=== PATIENT | male | born 1960 | race Caucasian/White ===

== ENCOUNTER 2017-11-03 09:19 | Outpatient (CLI) | payer SELFPAY ==
[2017-11-03 11:10] LABS: Hemoglobin A1C 9.2 % (4.5-6.2)
== END 2017-11-03 09:20 ==
PROVIDERS: PCP Family Medicine; Visit Provider Family Medicine
DX: E11.9 Type 2 diabetes mellitus without complications (principal)
CPT/HCPCS: 36415; 83036

== ENCOUNTER 2018-06-20 09:17 | Outpatient (CLI) | payer SELFPAY ==
[2018-06-20 13:02] LABS: Hemoglobin A1C 8.5 % (4.5-6.2)
[2018-06-20 13:10] LABS: CREATININE 1.07 mg/dL (0.70-1.30); Cholesterol 167 mg/dL (50-200); HDL Cholesterol 37 mg/dL (40-60); LDL CHOLESTEROL 109 mg/dL (<100); Potassium 4.2 mmol/L (3.5-5.1); Triglyceride 141 mg/dL (30-150)
== END 2018-06-20 09:37 ==
PROVIDERS: PCP Family Medicine; Visit Provider Family Medicine
DX: E11.9 Type 2 diabetes mellitus without complications (principal); E78.5 Hyperlipidemia, unspecified
CPT/HCPCS: 36415; 80061; 83721; 82565; 83036; 84132

== ENCOUNTER 2018-09-14 14:46 | Outpatient (CLI) | payer OTHER, SELFPAY ==
[2018-09-14 16:15] LABS: Calculated LDL 78 mg/dL; Cholesterol 185 mg/dL (50-200); HDL Cholesterol 40 mg/dL (40-60); Triglyceride 335 mg/dL (30-150)
== END 2018-09-14 15:06 ==
PROVIDERS: PCP Family Medicine; Visit Provider Family Medicine
DX: E78.5 Hyperlipidemia, unspecified (principal); E11.9 Type 2 diabetes mellitus without complications
CPT/HCPCS: 36415; 80061; 83721

== ENCOUNTER 2019-01-04 10:24 | Outpatient (CLI) | payer OTHER, SELFPAY ==
[2019-01-04 12:41] LABS: Hemoglobin A1C 7.3 % (4.5-6.2)
== END 2019-01-04 10:44 ==
PROVIDERS: PCP Family Medicine; Visit Provider Family Medicine
DX: E11.9 Type 2 diabetes mellitus without complications (principal)
CPT/HCPCS: 36415; 83036

== ENCOUNTER 2019-01-30 11:09 | Outpatient (CLI) | payer OTHER, SELFPAY ==
--- NOTE | 2019-01-30 11:17 | DI.RAD_ITS ---
EXAM: XR KNEE RT 2V AP,LAT CLINICAL HISTORY: pain TECHNIQUE: COMPARISON: No exams were available for comparison FINDINGS: Two views were obtained. There is marked narrowing of the medial tibiofemoral cartilaginous joint sp timothy with slight varus angulation of the knee and slight medial subluxation of the femur on the tibia. There is subchondral sclerosis of the adjacent bones at the medial tibiofemoral joint. Moderate ma rginal osteophyte formation noted at multiple sites. IMPRESSION: Moderate to severe degenerative changes medial tibiofemoral joint
--- NOTE | 2019-01-30 11:18 | DI.RAD_ITS ---
EXAM: XR KNEE LT 2V AP,LAT CLINICAL HISTORY: pain TECHNIQUE: COMPARISON: XR KNEE RT 2V AP,LAT from 01/30/2019 FINDINGS: Two views were obtained. There is marked narrowing of the medial tibiofemoral cartilaginous joint sp timothy. Slight subchondral sclerosis of the adjacent bones noted at this joint. Mild marginal osteophy te formation noted at multiple sites. 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
== END 2019-01-30 11:29 ==
PROVIDERS: PCP Family Medicine; Referring Provider Family Medicine; Visit Provider Orthopaedic Surgery
DX: M25.561 Pain in right knee (principal); M25.562 Pain in left knee; M17.12 Unilateral primary osteoarthritis, left knee
CPT/HCPCS: 20610; 99201; 99213; 73560; J1040

== ENCOUNTER 2019-04-15 01:54 | Outpatient (CLI) | payer OTHER, SELFPAY ==
[2019-04-15 11:34] LABS: CREATININE 1.28 mg/dL (0.70-1.30); Estimated GFR 57.33 (mL/min/1.73m2); Potassium 4.4 mmol/L (3.5-5.1)
[2019-04-15 14:04] LABS: COMMENT (LAB VIEW ONLY) 210.97 mg/dL; Microalb ug/mg Crea 6.9 ug/mg Cr
[2019-04-15 15:21] LABS: Hemoglobin A1C 7.4 % (3.8-5.6)
== END 2019-04-15 02:14 ==
PROVIDERS: PCP Family Medicine; Visit Provider Family Medicine
DX: I10 Essential (primary) hypertension (principal); E11.65 Type 2 diabetes mellitus with hyperglycemia
CPT/HCPCS: 36415; 82043; 82565; 82570; 83036; 84132

== ENCOUNTER → 2019-05-01 08:53 | Outpatient (BNVA) | payer OTHER, SELFPAY | PROVIDERS: PCP Family Medicine; Referring Provider Family Medicine; Visit Provider Orthopaedic Surgery | DX: M25.561 Pain in right knee (principal); M17.0 Bilateral primary osteoarthritis of knee | CPT/HCPCS: 99213 ==

== ENCOUNTER 2019-11-29 02:47 | Outpatient (CLI) | payer OTHER, SELFPAY ==
[2019-11-29 20:05] LABS: COMMENT (LAB VIEW ONLY) 65.13 mg/dL; Microalb ug/mg Crea 9.1 ug/mg Cr
[2019-11-29 22:31] LABS: PSA, Screening 4.1 ng/mL (0.0-4.5)
== END 2019-11-29 03:07 ==
PROVIDERS: PCP Family Medicine; Visit Provider Family Medicine
DX: Z12.5 Encounter for screening for malignant neoplasm of prostate (principal)
CPT/HCPCS: 36415; 84153; 82043; 82570

== ENCOUNTER 2020-03-31 14:13 | Outpatient (CLI) | payer OTHER, SELFPAY ==
--- NOTE | 2020-03-31 14:00 | DI.RAD_ITS ---
EXAM: XR KNEE RT 1V CLINICAL HISTORY: preop. TECHNIQUE: 2D digital imaging was performed. COMPARISON: CR XR KNEE LT 2V AP,LAT from 01/30/2019 CR XR STANDING ALIGNMENT from 03/31/2020 CR XR STANDING ALIGNMENT from 03/31/2020 FINDINGS: There are severe degenerative changes of the medial femoral tibial joint of the right knee. There is some lateral subluxation of the tibia with respect to the femur. There is prominent periarticular s purring as well as ferrous angulation. There is also severe narrowing of the medial femoral tibial j oint of the left knee. There is mild varus angulation. The ankle joint spaces are well maintained. The hip joint spaces are well maintained. There is a mild overall leg length discrepancy with the l eft femoral head projecting 5-7 millimeters superior to the right femoral head. IMPRESSION: Advanced degenerative changes of both knees, right greater than left. Mild overall leg length discre pancy. DATA REPOSITORY: RADIATION DOSE DELIVERED:
== END 2020-03-31 14:33 ==
PROVIDERS: PCP Family Medicine; Referring Provider Family Medicine; Visit Provider Physician Assistant Surgical
DX: M17.0 Bilateral primary osteoarthritis of knee (principal); M21.752 Unequal limb length (acquired), left femur
CPT/HCPCS: 73560; 77073

== ENCOUNTER 2020-04-03 01:15 | Outpatient (CLI) | payer OTHER, SELFPAY ==
[2020-04-03 11:11] LABS: HCT 45.9 % (40.0-50.0); HGB 15.2 g/dL (13.5-17.5); MCH 28.7 pg (27.0-33.0); MCHC 33.1 % (32.0-36.0); MCV 86.8 fL (80-95); MPV 10.7 fL (8.0-11.0); Platelet Count 193 10^3/uL (130-400); RBC 5.29 10^6/uL (4.36-5.78); RDW 12.9 % (11.8-14.1); RDW-SD 41.1 fL; WBC 6.34 10^3/uL (4.4-10.8)
[2020-04-03 11:30] LABS: Hemoglobin A1C 7.3 % (<5.7)
[2020-04-03 11:44] LABS: Anion Gap 10.9 mmol/L (3-11); BUN 28 mg/dL (7-18); CO2 26.1 mmol/L (21.0-32.0); CREATININE 1.3 mg/dL (0.70-1.30); Calcium 9.4 mg/dL (8.5-10.1); Chloride 100 mmol/L (98-107); Estimated GFR 56.12 (mL/min/1.73m2); Glucose 133 mg/dL (74-106); Potassium 4.3 mmol/L (3.5-5.1); Sodium 137 mmol/L (136-145)
[2020-04-04 13:07] LABS: COVID-19 RT-PCR UVMMC Result Negative (Negative)
== END 2020-04-03 01:35 ==
PROVIDERS: Physician Assistant Surgical; PCP Family Medicine; Visit Provider Student in an Organized Health Care Education/Training Program
DX: M25.561 Pain in right knee (principal); M25.562 Pain in left knee; M17.0 Bilateral primary osteoarthritis of knee; E11.9 Type 2 diabetes mellitus without complications; Z11.52 Encounter for screening for COVID-19; Z01.818 Encounter for other preprocedural examination; Z01.812 Encounter for preprocedural laboratory examination
CPT/HCPCS: 36415; 80048; 85027; U0003; 83036

== ENCOUNTER 2020-04-07 06:05 | Day surgery (SDC) | payer OTHER, SELFPAY ==
[2020-04-07] VITALS (9 sets, daily range): BP systolic 118–145; BP diastolic 63–82; PULSE 71–86; RESP 11–19; TEMP 36–36.6; O2SAT 93–97
[2020-04-07] MEDS: Acetaminophen 500 MG TAB 1000 MG PO ×2 (06:45→13:15)
[2020-04-07] MEDS: Celecoxib 200 MG CAP 400 MG PO (06:45)
[2020-04-07] MEDS: Gabapentin 300 MG CAP PO (06:45)
[2020-04-07] MEDS: Lactated Ringers 1,000 ML 80 ML IV (07:10)
--- NOTE | 2020-04-07 07:16 | W.PM.DS.N ---
Documented by User: Ana Lilia Zelalem 04/07/20 07:21 DS: Diagnosis Discharge Diagnosis (1) Osteoarthritis of right knee: Status: Acute Discharge Plan Disposition Patient Disposition: HOME Condition: Good Discharge Details Reason For Visit: Right knee DJD Attending Provider: Joe Dominguez Primary Care Provider: Andres Alvarez Home Meds and New Rx's Prescriptions: New acetaminophen 500 mg tablet 500 mg PO Q6H PRN (Reason: pain) Qty: 60 RF: 2 aspirin 81 mg tablet,delayed release (DR/EC) 81 mg PO BID 30 Days Qty: 60 RF: 0 celecoxib [Celebrex] 200 mg capsule 200 mg PO BID Qty: 30 RF: 0 docusate sodium [Colace] 100 mg capsule 100 mg PO BID Qty: 30 RF: 0 pantoprazole 40 mg tablet,delayed release (DR/EC) 40 mg PO DAILY 30 Days Qty: 30 RF: 0 oxycodone 5 mg tablet 5 mg PO Q4H PRN (Reason: severe post-operative pain) Qty: 18 RF: 0 Continued atorvastatin 20 mg tablet 20 mg PO DAILY Qty: 90 RF: 3 lisinopril-hydrochlorothiazide 20-12.5 mg tablet 2 tab PO DAILY Qty: 180 RF: 3 metformin 1,000 mg tablet 1,000 mg PO BID Qty: 180 RF: 3 (DME) lancets [OneTouch Delica Lancets] 1 EACH misc 1 ea Miscellaneous DAILY Qty: 100 RF: 3 Jardiance 10 mg tablet 10 mg PO DAILY Qty: 90 RF: 3 Discontinued aspirin 81 MG tablet,delayed release (DR/EC) 81 mg PO DAILY RF: 0 ibuprofen 200 mg Capsule 600 mg PO Q8H RF: 0 Discharge Instructions Additional Instructions: Total Knee Discharge Instructions Activity: The most important activity is to walk. You should try to take short walks a few times a day. It is important that when resting you work on keeping the knee straight. Avoid putting a pillow behind the knee as this will encourage flexion. Work on range of motion exercises as provided by Physical Therapy. - Start outpatient physical therapy within 2 weeks. - You should wear the NAKITA hose on both legs for 2 weeks. Dressing: Keep the surgical dressing in place for at least one week. After the first week it may be removed and replace with light gauze and tape or nothing. It may get wet after 3 days but avoid soaking the dressing. If it gets wet, just lightly pat dry. Medications: - You should take Tylenol and anti-inflammatory Celebrex as your primary pain control medications. If the Celebrex is too expensive or not covered, please call the office for another alternative (Advil/Ibuprofen or Naproxen/Aleve) - You have been prescribed a stronger pain medication Oxycodone for breakthrough pain, take as needed as prescribed. - You have also been prescribed a stomach acid reduction agent Pantoprozole to help reduce stomach acid and reflux. - Instead of your normal Aspirin 81 mg daily that you take we will be increasing your dose to Aspirin 81mg twice a day for DVT prevention unless instructed otherwise. A prescription for this Aspirin dosing was also prescribed. - If you have constipation you should take Colace (which was prescribed for you) or Miralax (which you may purchase [id number]). It takes most people 3-4 days to have a bowel movement. Follow-up: 2 weeks If you have any acute concerns or questions, please do not hesitate to contact the office at [phone]. You may contact Dr. Dominguez with any questions after hours through the hospital at [phone] or on his cell phone at [phone]. Referrals: Joe Dominguez MD [ [facility] STAFF PHYSICIAN] - Equipment/Supplies: Walker Activity:: Elevate Remove Dressings/Wound Care:: Do Not Remove Shower/Bathe:: 72 hours Diet:: As Tolerated Discharge Orders Discharge Orders: Discharge Order (Routine); Ordered 04/07/20 Ordered By: Joe Dominguez DS: Data Vitals/I&O Vitals and I&O: Vital Signs Temperature 36.5 C 04/07/20 06:10 Pulse 85 04/07/20 06:10 Pulse Rhythm Regular 04/07/20 06:10 Respiratory Rate 18 04/07/20 06:10 Respiratory Depth Normal 04/07/20 06:10 Blood Pressure 145/82 H 04/07/20 06:10 Pulse Oximetry 94 04/07/20 06:10 Oxygen Delivery Method Room Air 04/07/20 06:10 Oxygen Flow Rate 0 04/07/20 06:10 Pain Level 3 04/07/20 06:10 Intake & Output 04/06/20 04/06/20 04/07/20 11:59 23:59 11:59 Weight 107.048 kg 107.2 kg [facility] Medical History Bilateral chronic knee pain MICHELL (obstructive sleep apnea) Surgical History (Updated 04/07/20 @ 06:20 by Evy Sandoval RN) Appendectomy (~1978) History of colonoscopy left thumb ligament reattached (04/22/98) right knee surgery (04/22/81) Family History Mother , 50 Breast cancer Father Diabetes Heart disease Maternal Grandfather , 62 Kidney malignant neoplasm Paternal Grandfather , approx 75 No problems noted. Maternal Grandmother , 86 Heart disease Hypertension Paternal Grandfather , 51 Colon cancer Son Alcohol abuse Substance abuse Social History Smoking/Tobacco Use Status: Former Tobacco Use Quit Date: 03/23/20 Smokeless tobacco user: chewing tobacco Quit status: has quit before Second Hand Exposure: Yes Smoking risk assessment performed?: Yes Alcohol Intake: current Alcohol Intake frequency: a few times a month Alcohol type: beer Drug use: Never Substance use type: does not use Details: Pt states smoking briefly in 80's, has chewed tobacco for many years, quiting 03/23/20. Caregiver/Support person: No Household members: spouse Housing: house Communication Needs: None Do you need help understanding health information?: Rarely Pets and animals: Yes Pets and animals: cat(s) and dog(s) Sexually active: Yes Do you think of yourself as: straight/heterosexual Current gender identity: male What is your relationship status?: How often do you talk on the phone with friends or family?: three or more times per week How often do you get together with friends or relatives?: twice per week How often do you attend sabianist or religion services?: 1-3 times per year Do you belong to any clubs or organized social groups?: yes Panel score (0-1 are the most socially isolated patients): 3 What type of physical activity do you participate in: walking Duration: 30-45 minutes/day Frequency: daily Leidy/Mormonism: Buddhism Special leidy needs: No Seatbelt use: always Helmet use: Yes Helmet use: always Drive intox or ride w/intox driver license technician: No Do you feel safe at home: Yes Do you feel safe in your relationship?: Yes Documented by User: Joe Dominguez MD 04/07/20 12:50 Date of service: 04/07/20 Time of Service: 12:49 Discharge Plan Disposition Patient Disposition: HOME Condition: Good Discharge Details Reason For Visit: Right knee DJD Attending Provider: Joe Dominguez Primary Care Provider: Andres Alvarez Home Meds and New Rx's Prescriptions: New acetaminophen 500 mg tablet 500 mg PO Q6H PRN (Reason: pain) Qty: 60 RF: 2 aspirin 81 mg tablet,delayed release (DR/EC) 81 mg PO BID 30 Days Qty: 60 RF: 0 celecoxib [Celebrex] 200 mg capsule 200 mg PO BID Qty: 30 RF: 0 docusate sodium [Colace] 100 mg capsule 100 mg PO BID Qty: 30 RF: 0 pantoprazole 40 mg tablet,delayed release (DR/EC) 40 mg PO DAILY 30 Days Qty: 30 RF: 0 oxycodone 5 mg tablet 5 mg PO Q4H PRN (Reason: severe post-operative pain) Qty: 18 RF: 0 Continued atorvastatin 20 mg tablet 20 mg PO DAILY Qty: 90 RF: 3 lisinopril-hydrochlorothiazide 20-12.5 mg tablet 2 tab PO DAILY Qty: 180 RF: 3 metformin 1,000 mg tablet 1,000 mg PO BID Qty: 180 RF: 3 (DME) lancets [OneTouch Delica Lancets] 1 EACH misc 1 ea Miscellaneous DAILY Qty: 100 RF: 3 Jardiance 10 mg tablet 10 mg PO DAILY Qty: 90 RF: 3 Discontinued aspirin 81 MG tablet,delayed release (DR/EC) 81 mg PO DAILY RF: 0 ibuprofen 200 mg Capsule 600 mg PO Q8H RF: 0 Discharge Instructions Additional Instructions: Total Knee Discharge Instructions Activity: The most important activity is to walk. You should try to take short walks a few times a day. It is important that when resting you work on keeping the knee straight. Avoid putting a pillow behind the knee as this will encourage flexion. Work on range of motion exercises as provided by Physical Therapy. - Start outpatient physical therapy within 2 weeks. - You should wear the NAKITA hose on both legs for 2 weeks. Dressing: Keep the surgical dressing in place for at least one week. After the first week it may be removed and replace with light gauze and tape or nothing. It may get wet after 3 days but avoid soaking the dressing. If it gets wet, just lightly pat dry. Medications: - You should take Tylenol and anti-inflammatory Celebrex as your primary pain control medications. If the Celebrex is too expensive or not covered, please call the office for another alternative (Advil/Ibuprofen or Naproxen/Aleve) - You have been prescribed a stronger pain medication Oxycodone for breakthrough pain, take as needed as prescribed. - You have also been prescribed a stomach acid reduction agent Pantoprozole to help reduce stomach acid and reflux. - Instead of your normal Aspirin 81 mg daily that you take we will be increasing your dose to Aspirin 81mg twice a day for DVT prevention unless instructed otherwise. A prescription for this Aspirin dosing was also prescribed. - If you have constipation you should take Colace (which was prescribed for you) or Miralax (which you may purchase [id number]). It takes most people 3-4 days to have a bowel movement. Follow-up: 2 weeks If you have any acute concerns or questions, please do not hesitate to contact the office at [phone]. You may contact Dr. Dominguez with any questions after hours through the hospital at [phone] or on his cell phone at [phone]. Referrals: Joe Dominguez MD [ [facility] STAFF PHYSICIAN] - Equipment/Supplies: Walker Activity:: Elevate Remove Dressings/Wound Care:: Do Not Remove Shower/Bathe:: 72 hours Diet:: As Tolerated Discharge Orders Discharge Orders: Discharge Order (Routine); Ordered 04/07/20 Ordered By: Joe Dominguez DS: Summary Time Spent with Patient providing and/or coordinating discharge services: Less than 30 minutes Status at Discharge Functional status at discharge: uses cane/walker Overall status at discharge: patient is progressing back to baseline Mental Status: mental status grossly normal Speech and Movement: speech and movement normal Mood: congruent mood Affect: normal affect Exam Psych Mental Status: mental status grossly normal Speech and Movement: speech and movement normal Mood: congruent mood Affect: normal affect [facility] Medical History Bilateral chronic knee pain MICHELL (obstructive sleep apnea) Surgical History (Updated 04/07/20 @ 06:20 by Evy Sandoval RN) Appendectomy (~1978) History of colonoscopy left thumb ligament reattached (04/22/98) right knee surgery (04/22/81) Family History Mother , 50 Breast cancer Father Diabetes Heart disease Maternal Grandfather , 62 Kidney malignant neoplasm Paternal Grandfather , approx 75 No problems noted. Maternal Grandmother , 86 Heart disease Hypertension Paternal Grandfather , 51 Colon cancer Son Alcohol abuse Substance abuse Social History Smoking/Tobacco Use Status: Former Tobacco Use Quit Date: 03/23/20 Smokeless tobacco user: chewing tobacco Quit status: has quit before Second Hand Exposure: Yes Smoking risk assessment performed?: Yes Alcohol Intake: current Alcohol Intake frequency: a few times a month Alcohol type: beer Drug use: Never Substance use type: does not use Details: Pt states smoking briefly in 80's, has chewed tobacco for many years, quiting 03/23/20. Caregiver/Support person: No Household members: spouse Housing: house Communication Needs: None Do you need help understanding health information?: Rarely Pets and animals: Yes Pets and animals: cat(s) and dog(s) Sexually active: Yes Do you think of yourself as: straight/heterosexual Current gender identity: male What is your relationship status?: How often do you talk on the phone with friends or family?: three or more times per week How often do you get together with friends or relatives?: twice per week How often do you attend sabianist or religion services?: 1-3 times per year Do you belong to any clubs or organized social groups?: yes Panel score (0-1 are the most socially isolated patients): 3 What type of physical activity do you participate in: walking Duration: 30-45 minutes/day Frequency: daily Leidy/Mormonism: Buddhism Special leidy needs: No Seatbelt use: always Helmet use: Yes Helmet use: always Drive intox or ride w/intox driver license technician: No Do you feel safe at home: Yes Do you feel safe in your relationship?: Yes
[2020-04-07] MEDS: ceFAZolin 2 GM/50 ML BAG IVPB (07:39)
[2020-04-07] MEDS: Bupivacaine 0.25% Pres-Free 30 ML VIAL (08:14)
[2020-04-07] MEDS: Ketorolac 30 MG/ML VIAL (08:15)
[2020-04-07] MEDS: Normal Saline 20 ML VIAL (08:16)
--- NOTE | 2020-04-07 12:14 | PT.INIE ---
Date of service: 04/07/20 Time of Service: 12:14 PT Notes Visit Reasons: Right knee DJD Physical Therapy Day Surgery Initial Evaluation Date: 04/07/2020 Referring Doctor: CANDY Palacios PT Orders: PT CONSULT: Status post Ortho surgery. Precautions: WBAT on right LE. Patient Profile/Admitting Diagnosis: Drake is a 59-year-old male with primary unilateral osteoarthritis of the right hand status post right total knee arthroplasty on postoperative day 0. PMHX: Medical History (Updated 03/31/20 @ 16:00 by CANDY Ibarhim) Bilateral chronic knee pain MICHELL (obstructive sleep apnea) Surgical History Appendectomy (~1978) left thumb ligament reattached (04/22/98) right knee surgery (04/22/81) Social History/Home Situation: Lives with in a private home with 3 steps to enter with bilateral rails. He has a flight of stairs to the bedroom and another flight down to the cellar by he states that he does not need to negotiate either of them as he recovers. Equipment Owned/DME: None Subjective: Agreeable to PT consult. Denies chest pain, lightheadedness, and headache throughout session. Receptive of home exercise program given to him. Is very happy with how painless and and how big of a difference it is moving around after surgery. Objective: General Observation: Cryo/Cuff on right knee. Aureliano wraps on right LE. IV access in right UE. TEDS on left leg. Mental Status: Alert and oriented x4 Pain: None reported ROM: Right Upper Extremity: Shoulder Flexion WFL. Shoulder abduction WFL. Elbow flexion WFL. Wrist flexion WFL. Functional opening and closing of hand WFL. Left Upper Extremity: Shoulder Flexion WFL. Shoulder abduction WFL. Elbow flexion WFL. Wrist flexion WFL. Functional opening and closing of hand WFL. Right Lower Extremity: Hip flexion WFL. Hip abduction WFL. Knee flexion 0 to 100 degrees. Knee extension 100 degrees to 0 degrees ankle dorsiflexion WFL. Ankle plantarflexion WFL. Left Lower Extremity: Hip flexion WFL. Hip abduction WFL. Knee flexion WFL. Ankle dorsiflexion WFL. Ankle plantarflexion WFL. Strength: Right Upper Extremity: Shoulder flexors 5/5. Shoulder abductors 5/5. Elbow flexors 5/5. Elbow extensors 5/5. Client Development Director strong. Left Upper Extremity: Shoulder flexors 5/5. Shoulder abductors 5/5. Elbow flexors 5/5. Elbow extensors 5/5. Client Development Director strong. Right Lower Extremity: Hip flexors 4/5. Hip abductors 4/5. Knee flexors 3-/5. Knee extensors 4/5. Ankle dorsiflexors 5/5. Ankle plantarflexors 5/5. Left Lower Extremity:Hip flexors 5/5. Hip abductors 5/5. Knee flexors 5/5. Knee extensors 5/5. Ankle dorsiflexors 5/5. Ankle plantarflexors 5/5. Sensation: Intact as to light touch, pressure, and pain in bilateral lower extremities. Bed Mobility/Transfers: Supine to sit supervision Sit to stand supervision Stand to sit supervision Bed to chair supervision Gait: Guided patient through level surface ambulation of 200 feet using front wheel walker with standby assist of PT and nurse Evy using step-through gait pattern without any increase in pain nor complaint of headache, chest pain, and dizziness throughout. Stairs: Instructed patient on safe negotiation of 6 x 4 inch steps while holding onto a rail and holding onto PT for support without report of pain nor dizziness with step to gait pattern requiring standby assist of this PT as well as nurses Adrianna and Evy. Balance: Static Sitting: Normal Dynamic Sitting: Normal Static Standing: Good Dynamic Standing: Fair Special Tests: Mobility Limitations Standardized Measure [facility] AM-PAC 6 clicks Basic Mobility Inpatient Short Form: Raw Score: 23 CMS Score: 11% deficit Informed Consent/Education: Patient instructed in purpose of PT consult. Packet containing R TKA exercise protocol has been given to patient. Education and training on initial set of exercises that can be done at home have been completed with patient. Assessment: Drake demonstrates the need to use a front wheeled walker for all transfer and ambulation task performance to maximize independence and reduce fall risk at home. He will have the support of his as he recovers at home. He may benefit from outpatient physical therapy services in order to facilitate return to premorbid independent level and to participation with vocational activities. Patient presents with clinical signs and symptoms consistent with current/admitting diagnoses that have resulted to mobility limitations, gait instability, generalized weakness, and impairment of motor control as demonstrated by the following impairment level findings: 1. Decreased strength to left knee major muscle groups 2. Impaired standing balance 3. Limitation of joint range of motion in left knee flexion 89554 moderate Impairments are contributing to the following functional limitations: 1. Inability to safely ambulate without assistive device 2. Increase completion time for mobility ADL performance 3. Increased fall risk Patient is assessed as a 77114 moderate complexity based on the following: History: 59-year-old male with impairment level findings, functional limitations, and past medical history as indicated above Examination: Demonstrable impairment in strength, balance, and mobility level with underlying impairments and functional limitations as documented above Presentation: Evolving Decision Makin moderate complexity Goals: N/A. PT evaluation and 1-2 treatment sessions only for functional mobility training using recommended AD and for HEP instruction. Plan of Care/Treatment Plan: N/A. PT evaluation and 1-2 treatment session only for functional mobility training using recommended AD and for HEP instruction. DISCHARGE RECOMMENDATIONS: Home when medically cleared by orthopedic surgeon. Outpatient PT services in order to facilitate return to premorbid independent level and to vocational activity participation. TREATMENT CODE/TIME: 76882 x 20 minutes, 97190 x 17 minutes beginning at 12:14 PM. Thank you for the opportunity to participate in the care of this patient. Inna Leonardo PT, DPT, CLT [facility] [place], [place]
--- NOTE | 2020-04-07 22:34 | ROE_ITS ---
Date of service: 04/07/20 Time of Service: 09:34 Operative Note Operative Note DATE OF PROCEDURE: 04/07/20 PRE-OP DIAGNOSIS: Right Knee Osteoarthritis POST-OP DIAGNOSIS: same PROCEDURE: Right Total Knee Replacement SURGEON: Joe Dominguez PRISONER CLASSIFICATION INTERVIEWER: Casa Block ANESTHESIA: regional and spinal ESTIMATED BLOOD LOSS: 250 PATHOLOGY: none sent TOURNIQUET TIME: 0 COMPLICATIONS: None Patient was transported to: PACU Patient's condition: stable Implants: 1. Depuy Attune Cementless Cruciate Retaining Femoral Component, Size 6 2. Depuy Attune Cementless Rotating Platform Tibial Component, Size 6 3. Depuy Attune 6x7mm CR/RP Poly 4. Depuy Attune Patellar Component, Size 38mm Indications: I have seen Nestor in clinic for symptoms of knee arthritis, confirmed with radiographic findings. Nestor has exhausted nonoperative methods and was having significant limitations in daily function and desired better function and less pain. I discussed the technical details of a knee replacement. I explained the risks of the procedure to include, but not limited to, bleeding, infection, pain, stiffness, fracture, damage to nerves and vessels, damage to muscles and tendons, loosening, need for repeat procedure, blood clot and cardiopulmonary demise. Despite these risks, he elected to proceed. Findings: There was significant signs of arthritis throughout the knee, mostly involving the medial compartment. Procedure Description: Nestor was greeted in the preoperative holding area where the correct side was identified and marked. The consent was reviewed with the patient and signed. The history and physical was updated. All questions were answered. Preoperative medications were administered: Acetaminophen 1000mg, Celebrex 400mg, and Gabapentin 300mg. An adductor canal block was then administered by the anesthesia team in the PACU. Nestor was taken back to the operating room. A spinal anesthestic was then administered. The patient was placed into the supine position on the operating room table. A nonsterile tourniquet was placed high onto the leg but only used for cementing. Posts were placed for positioning during the procedure. All bony prominences were well padded. Prophylactic antibiotics in the form of Cefazolin were administered. 1g of Tranxemic Acid was given intravenously within 30 minutes of incision. The right leg was then prepped with Chloraprep and draped in a standard fashion with impervious stockinette. A second prep with Chloraprep was performed prior to application of Iodine impregnated skin protection. A timeout to confirm correct identity, side and site, procedure, allergies, anesthesia, and medical concerns was performed. With the knee in some flexion, a midline incision was made overlying the knee. Full thickness skin flaps were raised once the extensor mechanism was encountered. These were raised medially and laterally. Any bleeding was controlled with electrocautery. Once the extensor mechanism was fully exposed, a medial parapatellar arthrotomy was performed in a flexed position. All bleeding from the arthrotomy and the geniculate arteries was coagulated. A medial subperiosteal peel was performed with electrocautery to the midcoronal plane. Due to the significant varus deformity the entire medial tibial plateau was exposed. The fat pad was removed while keeping the patellar tendon protected. The anterior distal femur synovium was removed for later visualization. The ACL and PCL were resected and the anterior horn of the lateral meniscus was transected. The knee was then flexed with the patella everted. Large osteophytes from the tibia were removed. Large osteophytes from the femur were removed. Using a step drill, and based on preoperative templating, the femoral canal was entered. This was done with a step drill without any difficulty. The intramedullary distal femoral cut guide was inserted, set to a 5 degree valgus cut and 9mm cut thickness. The distal femoral cut guide was then held in position and pinned. With the soft tissues protected, the distal cut was performed. This was passed over a few times to ensure a planar cut. I then turned attention to the tibia. The extramedullary guide was placed onto the leg. The distal aspect was slid medial to adjust for position of center of ankle and stay in line with shaft of the tibia. Approximately 3-5 degrees of posterior slope was kept in the proximal cutting guide. The center of the guide was aligned with the PCL. The stylus was used to assess cut thickness. The medial side, most involved side, was set for a 4mm cut. This was then held in position and pinned into place with 2 additional pins and a cross pin for stability. The medial and lateral collateral ligaments were protected and the cut was performed. With this completed, it was assessed and noted to be of appropriate dimensions. The guide was removed. A spacer block was inserted and the knee was brought into extension. The 6mm spacer block provided full extension, without hyperextension and with stability of both the medial and lateral collateral ligaments was assessed. The pins from the femur and the tibia were then removed. The distal femur was then sized. The anterior stylus was placed onto the lateral ridge of the anterior femur. This indicated a size 6 femur. The external rotation of the guide was adjusted to 3 degrees to match the epicondylar axis, perpendicular to Ness?s line. The 4-in-1 cutting guide was the placed. The posterior medial femur cut was evaluated and appeared of good thickness. The spacer block was inserted underneath the cutting guide and stability was confirmed in 90 degrees of flexion. An yolanda wing was used to confirm appropriate position of the anterior cut to avoid notching. This cutting guide was ensured to be flush on the cut surface and then pinned into place with headed pins. While protecting the soft tissues, quad tendon, and collateral ligaments, the anterior and posterior cuts were performed with a saw. The central two pins were removed and the posterior and anterior chamfers were cut next. The notch-cutting guide was placed. This was pinned to lateralize the femoral component as much as possible while keeping it flush on the cut surface. This was then pinned into position. A reciprocating saw was used to make the notch cut. A rasp smoothed the cut surfaces. The medial and lateral menisci were removed. A trial femoral component was then inserted, impacted down to the cut surfaces, and the lug holes were drilled. A provisional trial tibial component was placed and the knee was brought through range of motion. The polyethylene was trialed until there was good flexion and extension with excellent stability to the medial and lateral collaterals. The patella was tracking without thumbs. A size 7mm polyethylene component provided the best range of motion and stability with less than 2mm gapping with medial and lateral stress and full ex tension without significant hyperextension. The tibial cut surface was fully exposed. The tibia was then sized as a 6. The tibia had been previously marked during trialing to correspond to the center of the tibial component to help with rotation. The trial was aligned to this casa, approximately rotated to the medial 1/3rd of the tibial tubercle. The trial was pinned into place. The tibia was prepared with a reamer and a keel punch and lug holes. The knee was then brought into extension and the patella was measured as 26mm. Using the patellar clamp and cut guide, this was resected to a flat surface with at least 13mm of thickness remaining. The size 38 patella fit the best. This was oriented and then clamped into position. The lugs were drilled. The trial components were removed. The final components were opened on the back table. The periosteal and capsular tissues, especially posteriorly, around the knee were then systematically injected with a periarticular cocktail consisting of 50cc 0.25% Marcaine, 30mg Ketorolac, 20cc of Exparal and 50cc of injectable saline. The knee was thoroughly irrigated with a pulse lavage and dried. Irrisept was also used to irrigate the tissues. On the back table, with the implants opened, the cement was mixed. One batche of high viscosity cement were prepared with vacuum assistance. After the cement was ready a small amount was placed on the cut surface of the patella and the patellar button was clamped into position and held. During this process attention was turned to the gutters of the knee and for all interfaces for any excess cement. While the cement was hardening, the cementless knee components were placed. Starting with the tibial component, the tibia was subluxed anteriorly and the lug holes of the component were lined up. The tibia was then impacted with an impactor and mallet until the tibial component was in contact with the tibia. The final polyethylene component was inserted. Then, the femoral component was inserted. The lug holes were aligned and the component was impacted into position. The knee was irrigated with Irrisept chlorhexadine solution. This was allowed to sit in the knee for 3 minutes. After the cement had finally cured, approximately 15min, the clamp was removed from the patella and the knee was taken through range of motion. The patella was tracking with a no-thumbs technique. The capsule was then reapproximated with a No. 1 Vicryl at multiple locations. The capsule was finally closed with a No. 2 Stratafix, barbed suture. The arthrotomy appeared watertight without significant bleeding. The second dosing of 1g TXA was started. Deep tissues were then reapproximated with 0 Vicryl and 2-0 Vicryl. The skin was closed with a running 3-0 Monocryl in a subcuticular fashion. This was reinforced with skin glue. A Mepilex silver dressing was applied along with a xvee-ay-slewh OSCAR wrap. A CryoCuff was applied. Nestor was transferred to the hospital bed without difficulty an suffering no apparent complication. Nestor has a good prognosis. Physical therapy will start today and without restrictions, weight-bearing as tolerated. Aspirin 81mg BID will be used for DVT prophylaxis.
== END 2020-04-07 14:28 | disposition home or self-care (01) ==
PROVIDERS: PCP Family Medicine; Visit Provider Student in an Organized Health Care Education/Training Program
PROC: (CPT 27447; principal; 2020-04-07 08:00)
DX: M17.11 Unilateral primary osteoarthritis, right knee (principal); M25.561 Pain in right knee; Z96.651 Presence of right artificial knee joint; G89.18 Other acute postprocedural pain; I10 Essential (primary) hypertension; G47.33 Obstructive sleep apnea (adult) (pediatric); E11.9 Type 2 diabetes mellitus without complications
CPT/HCPCS: 27447; C1776; 76942; 97162; 97530; NC; J0690; J1100; J1885; J2370; J2405

== ENCOUNTER 2020-04-23 13:37 | Outpatient (CLI) | payer OTHER, SELFPAY ==
--- NOTE | 2020-04-23 13:00 | DI.RAD_ITS ---
EXAM: XR KNEE RT 1V CLINICAL HISTORY: R TKA. TECHNIQUE: 2D digital imaging was performed. COMPARISON: CR XR KNEE RT 1V from 03/31/2020 FINDINGS: There is satisfactory position alignment of the components of the recently placed prosthesis. No fra cture evident. No obvious loosening. IMPRESSION: DATA REPOSITORY: RADIATION DOSE DELIVERED:
--- NOTE | 2020-04-23 13:00 | DI.RAD_ITS ---
EXAM: XR STANDING ALIGNMENT CLINICAL HISTORY: R TKA. TECHNIQUE: 2D digital imaging was performed. COMPARISON: CR XR STANDING ALIGNMENT from 03/31/2020 FINDINGS: There has been interval placement of a right knee prosthesis which appears to be in satisfactory alig nment. No fracture or loosening evident. Advanced degenerative narrowing of the medial compartment of the opposite-left knee is again noted. Hips appear relatively unremarkable as do the ankles. Jevon ar domes unremarkable. Sacroiliac joints unremarkable. IMPRESSION: DATA REPOSITORY: RADIATION DOSE DELIVERED:
== END 2020-04-23 13:38 | disposition home or self-care (01) ==
LOC: DIORS 13:42
PROVIDERS: PCP Family Medicine; Referring Provider Family Medicine; Visit Provider Physician Assistant
DX: Z96.651 Presence of right artificial knee joint (principal); Z47.1 Aftercare following joint replacement surgery; M17.12 Unilateral primary osteoarthritis, left knee
CPT/HCPCS: 73560; 77073

== ENCOUNTER 2020-04-24 01:57 | Outpatient (CLI) | payer OTHER, SELFPAY ==
[2020-04-25 13:56] LABS: COVID-19 RT-PCR UVMMC Result Negative (Negative)
== END 2020-04-24 01:58 | disposition home or self-care (01) ==
LOC: LBO 01:57
PROVIDERS: PCP Family Medicine; Visit Provider Nurse Practitioner
DX: Z20.822 Contact with and (suspected) exposure to COVID-19 (principal); Z01.818 Encounter for other preprocedural examination
CPT/HCPCS: U0003

== ENCOUNTER 2020-05-13 08:32 | Day surgery (SDC) | payer OTHER, SELFPAY ==
[2020-05-13] VITALS (8 sets, daily range): BP systolic 103–138; BP diastolic 56–86; PULSE 81–98; RESP 10–18; TEMP 36.1–36.7; O2SAT 90–96
[2020-05-13] MEDS: Celecoxib 200 MG CAP 400 MG PO (09:01)
[2020-05-13] MEDS: Gabapentin 300 MG CAP PO (09:01)
[2020-05-13] MEDS: Acetaminophen 500 MG TAB 1000 MG PO (09:01)
[2020-05-13] MEDS: Lactated Ringers 1,000 ML 80 ML IV (09:15)
--- NOTE | 2020-05-13 09:48 | W.PM.DSUDISC ---
Discharge Plan Disposition Patient Disposition: HOME Condition: Good Discharge Details Reason For Visit: Left TKA Attending Provider: Joe Dominguez Primary Care Provider: Andres Alvarez Home Meds and New Rx's Prescriptions: New aspirin 81 mg tablet,delayed release (DR/EC) 81 mg PO BID Qty: 60 RF: 0 acetaminophen 500 mg capsule 1,000 mg PO Q8H PRN PRNQty: 90 RF: 0 celecoxib 200 mg capsule 200 mg PO BID Qty: 60 RF: 0 pantoprazole 40 mg tablet,delayed release (DR/EC) 40 mg PO DAILY Qty: 30 RF: 0 gabapentin 300 mg capsule 300 mg PO QHS Qty: 14 RF: 0 oxycodone 5 mg tablet 5 mg PO Q8H MDD 15mg PRN (Reason: pain) Qty: 10 RF: 0 Continued atorvastatin 20 mg tablet 20 mg PO DAILY Qty: 90 RF: 3 lisinopril-hydrochlorothiazide 20-12.5 mg tablet 2 tab PO DAILY Qty: 180 RF: 3 metformin 1,000 mg tablet 1,000 mg PO BID Qty: 180 RF: 3 (DME) lancets [OneTouch Delica Lancets] 1 EACH misc 1 ea Miscellaneous DAILY Qty: 100 RF: 3 Jardiance 10 mg tablet 10 mg PO DAILY Qty: 90 RF: 3 aspirin 81 mg Tablet 81 mg PO DAILY RF: 0 acetaminophen 500 mg tablet 500 mg PO Q6H PRN (Reason: pain) Qty: 60 RF: 2 docusate sodium [Colace] 100 mg capsule 100 mg PO BID Qty: 30 RF: 0 Discontinued oxycodone 5 mg tablet 5 mg PO Q4H PRN (Reason: severe post-operative pain) Qty: 18 RF: 0 Discharge Instructions Additional Instructions: Total Knee Discharge Instructions Activity: The most important activity is to walk. You should try to take short walks a few times a day. It is important that when resting you work on keeping the knee straight. Avoid putting a pillow behind the knee as this will encourage flexion. Work on range of motion exercises as provided by Physical Therapy. - Start outpatient physical therapy within 2 weeks. - You should wear the NAKITA hose on both legs for 2 weeks. You may remove these at night. You may also use any compression sock in place of the NAKITA hose. Dressing: You may remove the Aureliano wrap on your leg 2 days after your surgery and put on the NAKITA stocking given to you from the hospital. Keep the surgical dressing (underneath the AURELIANO wrap) in place for at least one week. After the first week it may be removed and replaced with light gauze and tape or nothing. The wound and dressing may get wet after 3 days but avoid soaking the dressing or otherwise it will need to be changed. Many people prefer covering the dressing with cling wrap (saran wrap) to minimize it from getting soaked. If it gets wet, just pat dry. If it starts to peel off then it will need to be changed. Medications: - You should take Tylenol and anti-inflammatory [Celebrex] as your primary pain control medications. If the Celebrex is too expensive or not covered, please call the office for another alternative (Advil/Ibuprofen or Naproxen/Aleve) - You have been prescribed a stronger pain medication [Oxycodone] for breakthrough pain, take as needed as prescribed. - You have also been prescribed a stomach acid reduction agent [Pantoprozole] to help reduce stomach acid and reflux. [- You have been prescribed Gabapentin to take at night for restlessness and nerve pain.] - You will be taking [Aspirin 81mg twice a day] for DVT prevention unless instructed otherwise. - If you have constipation you should take Colace or Miralax (both [id number]). It takes most people 3-4 days to have a bowel movement. Follow-up: 2 weeks If you have any acute concerns or questions, please do not hesitate to contact the office at [phone]. You may contact Dr. Dominguez with any questions after hours through the hospital at [phone] or on his cell phone at [phone]. Referrals: Joe Dominguez MD [ [facility] STAFF PHYSICIAN] - Equipment/Supplies: Walker Activity:: Activity as Tolerated Shower/Bathe:: 72 hours Diet:: As Tolerated DS: Diagnosis Discharge Diagnosis (1) Primary osteoarthritis of left knee: Status: Acute
[2020-05-13] MEDS: ceFAZolin 2 GM/50 ML BAG IVPB (10:32)
[2020-05-13] MEDS: Normal Saline 20 ML VIAL (12:04)
[2020-05-13] MEDS: Bupivacaine 0.25% Pres-Free 30 ML VIAL (12:04)
[2020-05-13] MEDS: Ketorolac 30 MG/ML VIAL (12:04)
--- NOTE | 2020-05-13 13:43 | ROE_ITS ---
Date of service: 05/13/20 Time of Service: 12:22 Operative Note Operative Note DATE OF PROCEDURE: 05/13/20 PRE-OP DIAGNOSIS: Left Knee Osteoarthritis POST-OP DIAGNOSIS: same PROCEDURE: Left Total Knee Replacement SURGEON: Joe Dominguez [employer] LIBRARIAN: Casa Block Refer to Anesthesia Record ESTIMATED BLOOD LOSS: 250 PATHOLOGY: none sent TOURNIQUET TIME: 0 COMPLICATIONS: None Patient was transported to: PACU Patient's condition: stable Implants: 1. Depuy Attune Cementless Cruciate Retaining Femoral Component, Size 6 2. Depuy Attune Cementless Rotating Platform Tibial Component, Size 6 3. Depuy Attune 6x6 CR/RP Poly 4. Depuy Attune Patellar Component, Size 38mm Indications: I have seen Nestor in clinic for symptoms of knee arthritis, confirmed with radiographic findings. He has exhausted nonoperative methods and was having significant limitations in daily function and desired better function and less pain. I discussed the technical details of a knee replacement. I explained the risks of the procedure to include, but not limited to, bleeding, infection, pain, stiffness, fracture, damage to nerves and vessels, damage to muscles and tendons, loosening, need for repeat procedure, blood clot and cardiopulmonary demise. Despite these risks, Nestor elected to proceed. Findings: There was significant signs of arthritis throughout the knee with large medial osteophytes. Procedure Description: Nestor was greeted in the preoperative holding area where the correct side was identified and marked. The consent was reviewed with the patient and signed. The history and physical was updated. All questions were answered. Preoperative medications were administered: Acetaminophen 1000mg, Celebrex 400mg, and Gabapentin 300mg. An adductor canal block was then administered by the anesthesia team in the PACU. Nestor was taken back to the operating room. A spinal anesthestic was then administered. The patient was placed into the supine position on the operating room table. A nonsterile tourniquet was placed high onto the leg but only used for cementing. Posts were placed for positioning during the procedure. All bony prominences were well padded. Prophylactic antibiotics in the form of Cefazolin were administered. 1g of Tranxemic Acid was given intravenously within 30 minutes of incision. The left leg was then prepped with Chloraprep and draped in a standard fashion with impervious stockinette. A second prep with Chloraprep was performed prior to application of Iodine impregnated skin protection. A timeout to confirm correct identity, side and site, procedure, allergies, anesthesia, and medical concerns was performed. With the knee in some flexion, a midline incision was made overlying the knee. Full thickness skin flaps were raised once the extensor mechanism was encountered. These were raised medially and laterally. Any bleeding was controlled with electrocautery. Once the extensor mechanism was fully exposed, a medial parapatellar arthrotomy was performed in a flexed position. All bleeding from the arthrotomy and the geniculate arteries was coagulated. A medial subperiosteal peel was performed with electrocautery to the midcoronal plane. Due to the significant varus deformity the entire medial tibial plateau was exposed. The fat pad was removed while keeping the patellar tendon protected. The anterior distal femur synovium was removed for later visualization. The ACL and PCL were resected and the anterior horn of the lateral meniscus was transected. The knee was then flexed with the patella everted. Large osteophytes from the tibia were removed. Large osteophytes from the femur were removed. Using a step drill, and based on preoperative templating, the femoral canal was entered. This was done with a step drill without any difficulty. The intramedullary distal femoral cut guide was inserted, set to a 5 degree valgus cut and 9mm cut thickness. The distal femoral cut guide was then held in posi tion and pinned. With the soft tissues protected, the distal cut was performed. This was passed over a few times to ensure a planar cut. I then turned attention to the tibia. The extramedullary guide was placed onto the leg. The distal aspect was slid medial to adjust for position of center of ankle and stay in line with shaft of the tibia. Approximately 3-5 degrees of posterior slope was kept in the proximal cutting guide. The center of the guide was aligned with the PCL. The stylus was used to assess cut thickness. The medial side, most involved side, was set for a 3mm cut, corresponding to 8mm laterally. This was then held in position and pinned into place with 2 additional pins and a cross pin for stability. The medial and lateral collateral ligaments were protected and the cut was performed. With this completed, it was assessed and noted to be of appropriate dimensions. The guide was removed. A spacer block was inserted and the knee was brought into extension. The 6mm spacer block provided full extension, without hyperextension and with stability of both the medial and lateral collateral ligaments was assessed. The pins from the femur and the tibia were then removed. The distal femur was then sized. The anterior stylus was placed onto the lateral ridge of the anterior femur. This indicated a size 6 femur. The external rotation of the guide was adjusted to 3 degrees to match the epicondylar axis, perpendicular to Eddy?s line. The 4-in-1 cutting guide was the placed. The posterior medial femur cut was evaluated and appeared of good thickness. The spacer block was inserted underneath the cutting guide and stability was confirmed in 90 degrees of flexion. An yolanda wing was used to confirm appropriate position of the anterior cut to avoid notching. This cutting guide was ensured to be flush on the cut surface and then pinned into place with headed pins. While protecting the soft tissues, quad tendon, and collateral ligaments, the anterior and posterior cuts were performed with a saw. The central two pins were removed and the posterior and anterior chamfers were cut next. The notch-cutting guide was placed. This was pinned to lateralize the femoral component as much as possible while keeping it flush on the cut surface. This was then pinned into position. A reciprocating saw was used to make the notch cut. A rasp smoothed the cut surfaces. The medial and lateral menisci were removed. A trial femoral component was then inserted, impacted down to the cut surfaces, and the lug holes were drilled. A provisional trial tibial component was placed and the knee was brought through range of motion. There was noted to be excellent extension and flexion. There was no significant instability. The patella was tracking without thumbs. A size 6mm polyethylene component provided the best range of motion and stability with less than 2mm gapping with medial and lateral stress and full extension without significant hyperextension. The tibial cut surface was fully exposed. The tibia was then sized as a 6. The tibia had been previously marked during trialing to correspond to the center of the tibial component to help with rotation. The trial was aligned to this casa, approximately rotated to the medial 1/3rd of the tibial tubercle. The trial was pinned into place. The tibia was prepared with a reamer and a keel punch and lug holes. The knee was then brought into extension and the patella was measured as 28mm. Using the patellar clamp and cut guide, this was resected to a flat surface with at least 13mm of thickness remaining. The size 38mm patella fit the best. This was oriented and then clamped into position. The lugs were drilled. The trial components were removed. The final components were opened on the back table. The periosteal and capsular tissues, especially posteriorly, around the knee were then systematically injected with a periarticular cocktail consisting of 50cc 0.25% Marcaine, 30mg Ketorolac, 20cc of Exparal and 50cc of injectable saline. The knee was thoroughly irrigated with a pulse lavage and dried. Irrisept was also used to irrigate the tissues. On the back table, with the implants opened, the cement was mixed. One batch of high viscosity cement was prepared with vacuum assistance. After the cement was ready a small amount was placed on the cut surface of the patella and the patellar button was clamped into position and held. While the cement was hardening, the cementless knee components were placed. Starting with the tibial component, the tibia was subluxed anteriorly and the lug holes of the component were lined up. The tibia was then impacted with an impactor and mallet until the tibial component was in contact with the tibia. The final polyethylene component was inserted. Then, the femoral component was inserted. The lug holes were aligned and the component was impacted into position. The knee was irrigated with Irrisept chlorhexadine solution. This was allowed to sit in the knee for 3 minutes. After the cement had finally cured, approximately 15min, the clamp was removed from the patella and the knee was taken through range of motion. The patella was tracking with a no-thumbs technique. The capsule was then reapproximated with a No. 1 Vicryl at multiple locations. The capsule was finally closed with a No. 2 Stratafix, barbed suture. The second dosing of 1g TXA was started. Deep tissues were then reapproximated with 0 Vicryl and 2-0 Vicryl. The skin was closed with a running 3-0 Monocryl in a subcuticular fashion. This was reinforced with skin glue. A Mepilex silver dressing was applied along with a [id number] OSCAR wrap. A CryoCuff was applied. Nestor was transferred to the hospital bed without difficulty an suffering no apparent complication. He has a good prognosis. Physical therapy will start today and without restrictions, weight-bearing as tolerated. Aspirin 81mg BID will be used for DVT prophylaxis.
--- NOTE | 2020-05-13 14:19 | PT.INIE ---
Date of service: 05/13/20 Time of Service: 14:19 PT Notes Visit Reasons: Left TKA Physical Therapy Day Surgery Initial Evaluation Date: 05/13/2020 Referring Doctor: CANDY Morin PT Orders: PT CONSULT: Status post Ortho surgery. Precautions: WBAT on left LE with AD. Patient Profile/Admitting Diagnosis: Drake is a 59-year-old male with primary unilateral osteoarthritis of the left knee status post right total knee arthroplasty on postoperative day 0. PMHX: Medical History Bilateral chronic knee pain MICHELL (obstructive sleep apnea) Surgical History Appendectomy (~1978) History of colonoscopy History of total right knee replacement (TKR) (04/07/20) left thumb ligament reattached (04/22/98) right knee surgery (04/22/81) Social History/Home Situation: Lives with in a private home with 3 steps to enter with bilateral rails. He has a flight of stairs to the bedroom and another flight down to the cellar but he states that he does not need to use either of them as he recovers. Equipment Owned/DME: FWW, SPC Subjective: Agreeable to PT consult. Denies chest pain, lightheadedness, and headache throughout session. Feels that this second surgery is a lot better. Did not report of any pain throughout session. Verbalizes good mastery of TKA exercises shared to him the during the previous surgery. Objective: General Observation: Cryo/Cuff on left knee. Aureliano wraps on left LE. IV access in left UE. TEDS on right leg. Mental Status: Alert and oriented x4 Pain: None reported ROM: Right Upper Extremity: Shoulder Flexion WFL. Shoulder abduction WFL. Elbow flexion WFL. Wrist flexion WFL. Functional opening and closing of hand WFL. Left Upper Extremity: Shoulder Flexion WFL. Shoulder abduction WFL. Elbow flexion WFL. Wrist flexion WFL. Functional opening and closing of hand WFL. Right Lower Extremity: Hip flexion WFL. Hip abduction WFL. Knee flexion 0 to 110 degrees. Knee extension 100 degrees to 0 degrees ankle dorsiflexion WFL. Ankle plantarflexion WFL. Left Lower Extremity: Hip flexion WFL. Hip abduction WFL. Knee flexion 0 to 100 degrees. Ankle dorsiflexion WFL. Ankle plantarflexion WFL. Strength: Right Upper Extremity: Shoulder flexors 5/5. Shoulder abductors 5/5. Elbow flexors 5/5. Elbow extensors 5/5. Hr Payroll Coordinator strong. Left Upper Extremity: Shoulder flexors 5/5. Shoulder abductors 5/5. Elbow flexors 5/5. Elbow extensors 5/5. Hr Payroll Coordinator strong. Right Lower Extremity: Hip flexors 4/5. Hip abductors 4/5. Knee flexors 3-/5. Knee extensors 4/5. Ankle dorsiflexors 5/5. Ankle plantarflexors 5/5. Left Lower Extremity:Hip flexors 5/5. Hip abductors 5/5. Knee flexors 3-/5. Knee extensors 4/5. Ankle dorsiflexors 5/5. Ankle plantarflexors 5/5. Sensation: Intact as to light touch, pressure, and pain in bilateral lower extremities. Bed Mobility/Transfers: Supine to sit supervision Sit to stand supervision Stand to sit supervision Bed to chair supervision Gait: Guided patient through level surface ambulation of 200 feet using front wheel walker with standby assist of PT and nurse Evy using step-through gait pattern without any increase in pain nor complaint of headache, chest pain, and dizziness throughout. Stairs: Instructed patient on safe negotiation of 10 x 6-inch steps while holding onto a rail and holding onto SPC for support without report of pain nor dizziness with step-to gait pattern requiring standby assist of this PT as well as of Nurse electric motor repairing supervisor Melvina and Nurse Evy for safety. Balance: Static Sitting: Normal Dynamic Sitting: Normal Static Standing: Good Dynamic Standing: Fair Special Tests: Mobility Limitations Standardized Measure [facility]-PAC 6 clicks Basic Mobility Inpatient Short Form: Raw Score: 23 CMS Score: 11% deficit Informed Consent/Education: Patient instructed in purpose of PT consult. R TKA exercise protocol has been reviewed with patient. Re-education and re-training on initial set of exercises that can be done at home have been completed with patient. Assessment: Drake demonstrates the need to use a front wheeled walker for all transfer and ambulation task performance to maximize independence and reduce fall risk at home. He will have the support of his as he recovers at home. He may benefit from outpatient physical therapy services in order to facilitate return to premorbid independent level and to participation with vocational activities. Patient presents with clinical signs and symptoms consistent with current/admitting diagnoses that have resulted to mobility limitations, gait instability, generalized weakness, and impairment of motor control as demonstrated by the following impairment level findings: 1. Decreased strength to left knee major muscle groups 2. Impaired standing balance 3. Limitation of joint range of motion in left knee flexion Impairments are contributing to the following functional limitations: 1. Inability to safely ambulate without assistive device 2. Increase completion time for mobility ADL performance 3. Increased fall risk 4. need for assistance with stair negotiation Patient is assessed as a 97166 moderate complexity based on the following: History: 59-year-old male with impairment level findings, functional limitations, and past medical history as indicated above Examination: Demonstrable impairment in strength, balance, and mobility level with underlying impairments and functional limitations as documented above Presentation: Evolving Decision Makin moderate complexity Goals: N/A. PT evaluation and 1-2 treatment sessions only for functional mobility training using recommended AD and for HEP instruction. Plan of Care/Treatment Plan: N/A. PT evaluation and 1-2 treatment session only for functional mobility training using recommended AD and for HEP instruction. PT INTERVENTION RECEIVED TODAY: Assessment for and fitting of appropriate assistive device. Guided patient through bed mobility, transfers, and mobility ADL performance on level surfaces using front wheeled walker and single point cane ins tairs in order to reduce fall risk. Re-educated and re-trained patient on HEP performance to maximize post-surgical functional outcomes. Re-educationon the use of Cryocuff device. DISCHARGE RECOMMENDATIONS: Home when medically cleared by orthopedic surgeon. Outpatient PT services in order to facilitate return to premorbid independent level and to vocational activity participation. TREATMENT CODE/TIME: 05441 x 20 minutes, 42837 x 11 minutes beginning at 14:19 PM. Thank you for the opportunity to participate in the care of this patient. Inna Leonardo PT, DPT, CLT [facility] [place], [place]
== END 2020-05-13 15:44 | disposition home or self-care (01) ==
PROVIDERS: PCP Family Medicine; Visit Provider Student in an Organized Health Care Education/Training Program
PROC: (CPT 27447; principal; 2020-05-13 10:00)
DX: M17.12 Unilateral primary osteoarthritis, left knee (principal); I10 Essential (primary) hypertension; G47.33 Obstructive sleep apnea (adult) (pediatric); E11.9 Type 2 diabetes mellitus without complications
CPT/HCPCS: 27447; 76942; 97162; 97530; J0690; J1885; J2001; J2250; J2405

== ENCOUNTER 2020-05-26 17:12 | Outpatient (REF) | payer OTHER, SELFPAY ==
[2020-05-27 18:34] LABS: PSA, Screening 4.7 ng/mL (0.0-4.5)
== END 2020-05-26 17:13 | disposition home or self-care (01) ==
LOC: LBN 17:12
PROVIDERS: PCP Family Medicine; Visit Provider Family Medicine
DX: Z12.5 Encounter for screening for malignant neoplasm of prostate (principal)
CPT/HCPCS: 84153

== ENCOUNTER 2020-05-28 09:17 | Outpatient (CLI) | payer OTHER, SELFPAY ==
--- NOTE | 2020-05-28 09:00 | DI.RAD_ITS ---
EXAM: XR KNEE LT 1V CLINICAL HISTORY: 1st post op L TKA. TECHNIQUE: 2D digital imaging was performed. COMPARISON: CR XR KNEE RT 1V from 04/23/2020 FINDINGS: Components of the prosthesis exhibit normal position alignment on this single lateral view. No obvio us fracture or loosening. Radiographically unchanged from 04/23/2020. IMPRESSION: DATA REPOSITORY: RADIATION DOSE DELIVERED:
--- NOTE | 2020-05-28 09:00 | DI.RAD_ITS ---
EXAM: XR STANDING ALIGNMENT CLINICAL HISTORY: 1ST POST OP L TKA. TECHNIQUE: 2D digital imaging was performed. COMPARISON: CR XR STANDING ALIGNMENT from 04/23/2020 FINDINGS: There has been interval placement of a left knee prosthesis. There are now bilateral knee prostheses . Both appear to be in satisfactory position alignment. No fractures or loosening evident. However , there is a calcified intra-articular body seen midway in the right knee joint. Mild joint space na rrowing in the left hip is noted. Ankles unremarkable. IMPRESSION: DATA REPOSITORY: RADIATION DOSE DELIVERED:
== END 2020-05-28 09:18 | disposition home or self-care (01) ==
LOC: DIORS 09:18
PROVIDERS: PCP Family Medicine; Referring Provider Family Medicine; Visit Provider Physician Assistant
DX: Z96.652 Presence of left artificial knee joint (principal); Z47.1 Aftercare following joint replacement surgery
CPT/HCPCS: 73560; 77073

== ENCOUNTER 2020-11-24 02:02 | Outpatient (CLI) | payer OTHER, SELFPAY ==
[2020-11-25 17:03] LABS: PSA, Diagnostic 4.2 ng/mL (0.0-4.5)
== END 2020-11-24 02:03 | disposition home or self-care (01) ==
LOC: LBO 02:02
PROVIDERS: PCP Family Medicine; Visit Provider Nurse Practitioner Gerontology
DX: R97.20 Elevated prostate specific antigen [PSA] (principal)
CPT/HCPCS: 36415; 84153

== ENCOUNTER 2020-12-18 02:44 | Outpatient (CLI) | payer OTHER, SELFPAY ==
[2020-12-18 09:11] LABS: Hemoglobin A1C 7.6 % (<5.7)
[2020-12-18 09:59] LABS: CREATININE 1.3 mg/dL (0.70-1.30); Calculated LDL 129 mg/dL (<100); Cholesterol 211 mg/dL (<200); Estimated GFR 55.94 (mL/min/1.73m2); HDL Cholesterol 42 mg/dL (40-60); Potassium 4.6 mmol/L (3.5-5.1); Triglyceride 203 mg/dL (<150)
== END 2020-12-18 02:45 | disposition home or self-care (01) ==
LOC: LBO 02:44
PROVIDERS: PCP Family Medicine; Visit Provider Family Medicine
DX: I10 Essential (primary) hypertension; E78.5 Hyperlipidemia, unspecified; R73.9 Hyperglycemia, unspecified
CPT/HCPCS: 36415; 80061; 82565; 83036; 84132

== ENCOUNTER 2021-05-10 14:58 | Outpatient (CLI) | payer OTHER, SELFPAY ==
--- NOTE | 2021-05-10 14:45 | DI.RAD_ITS ---
Exam(s) XR KNEE RT 2V AP,LAT EXAM: XR KNEE RT 2V AP,LAT INDICATION: ANNUAL F/U R TKA. COMPARISON: CR XR KNEE RT 1V from 04/23/2020 CR XR STANDING ALIGNMENT from 05/28/2020 TECHNIQUE: 2D digital imaging was performed. Two views. FINDINGS: There has been no change in the total knee prosthesis or appearance of the surrounding bone. DATA REPOSITORY: RADIATION DOSE DELIVERED:
--- NOTE | 2021-05-10 14:48 | DI.RAD_ITS ---
Exam(s) XR KNEE LT 2V AP,LAT EXAM: XR KNEE LT 2V AP,LAT INDICATION: ANNUAL F/U LEFT AND RIGHT KNEE REPLACEMENTS. COMPARISON: CR XR KNEE LT 1V from 05/28/2020 TECHNIQUE: 2D digital imaging was performed. Two views. FINDINGS: There has been no change in the left total knee prosthesis or appearance of the surrounding.. DATA REPOSITORY: RADIATION DOSE DELIVERED:
== END 2021-05-10 14:59 | disposition home or self-care (01) ==
LOC: DIORS 14:59
PROVIDERS: PCP Family Medicine; Visit Provider Student in an Organized Health Care Education/Training Program
DX: Z96.653 Presence of artificial knee joint, bilateral (principal); Z47.1 Aftercare following joint replacement surgery
CPT/HCPCS: 73560

== ENCOUNTER 2021-05-26 02:50 | Outpatient (CLI) | payer OTHER, SELFPAY ==
[2021-05-27 23:09] LABS: PSA, Diagnostic 4.4 ng/mL (0.0-4.5)
== END 2021-05-26 02:51 | disposition home or self-care (01) ==
LOC: LBO 02:50
PROVIDERS: PCP Family Medicine; Visit Provider Nurse Practitioner Gerontology
DX: R97.20 Elevated prostate specific antigen [PSA] (principal)
CPT/HCPCS: 36415; 84153

== ENCOUNTER 2021-11-22 03:18 | Outpatient (CLI) | payer OTHER, SELFPAY ==
[2021-11-23 17:59] LABS: PSA, Screening 4.9 ng/mL (<=4.5)
== END 2021-11-22 03:19 | disposition home or self-care (01) ==
LOC: LBO 03:18
PROVIDERS: PCP Family Medicine; Visit Provider Nurse Practitioner Gerontology
DX: R97.20 Elevated prostate specific antigen [PSA] (principal); Z12.5 Encounter for screening for malignant neoplasm of prostate
CPT/HCPCS: 36415; 84153

== ENCOUNTER 2021-12-14 16:20 | Outpatient (REF) | payer OTHER, SELFPAY ==
[2021-12-14 20:31] LABS: CREATININE 1.1 mg/dL (0.70-1.30); Cholesterol 206 mg/dL (<200); Estimated GFR 75.43 (mL/min/1.73m2); HDL Cholesterol 42 mg/dL (40-60); Triglyceride 413 mg/dL (<150)
[2021-12-14 20:52] LABS: COMMENT (LAB VIEW ONLY) 73.02 mg/dL; Microalb ug/mg Crea 7.8 ug/mg Cr
[2021-12-14 21:24] LABS: LDL CHOLESTEROL 114 mg/dL (<100)
== END 2021-12-14 16:21 | disposition home or self-care (01) ==
LOC: LBN 16:20
PROVIDERS: PCP Family Medicine; Visit Provider Family Medicine
DX: I10 Essential (primary) hypertension (principal); E78.5 Hyperlipidemia, unspecified; E11.9 Type 2 diabetes mellitus without complications
CPT/HCPCS: 80061; 83721; 82043; 82565; 82570; 84132

== ENCOUNTER 2022-05-10 03:25 | Outpatient (CLI) | payer OTHER, SELFPAY ==
[2022-05-11 18:10] LABS: PSA, Screening 5.4 ng/mL (<=4.5)
== END 2022-05-10 03:26 | disposition home or self-care (01) ==
PROVIDERS: PCP Family Medicine; Visit Provider Nurse Practitioner Gerontology
DX: R97.20 Elevated prostate specific antigen [PSA] (principal)
CPT/HCPCS: 36415; 84153

== ENCOUNTER 2022-05-16 15:33 | Outpatient (CLI) | payer OTHER, SELFPAY ==
--- NOTE | 2022-05-16 14:45 | DI.RAD_ITS ---
Exam(s) XR KNEE RT 2V AP,LAT EXAM: XR KNEE RT 2V AP,LAT CLINICAL HISTORY: history of R TKA. TECHNIQUE: 2D digital imaging was performed. Two images were obtained. AP and lateral views were ob tained. COMPARISON: CR XR KNEE RT 2V AP,LAT from 05/10/2021 FINDINGS: BONES: There are stable post operative changes present. No fracture or dislocation. JOINTS: The orthopedic hardware is in good position. No evidence of hardware loosening. SOFT TISSUE: Atherosclerosis is present. IMPRESSION: Stable postoperative changes. DATA REPOSITORY: RADIATION DOSE DELIVERED:
--- NOTE | 2022-05-16 14:45 | DI.RAD_ITS ---
Exam(s) XR KNEE LT 2V AP,LAT EXAM: XR KNEE LT 2V AP,LAT CLINICAL HISTORY: history of L TKA. TECHNIQUE: 2D digital imaging was performed. Two images were obtained. AP and lateral views were ob tained. COMPARISON: CR XR KNEE LT 2V AP,LAT from 05/10/2021 FINDINGS: BONES: There are stable post operative changes present. No fracture or dislocation. JOINTS: The orthopedic hardware is in good position. No evidence of hardware loosening. SOFT TISSUE: Atherosclerosis. IMPRESSION: Stable postoperative changes. DATA REPOSITORY: RADIATION DOSE DELIVERED:
== END 2022-05-16 15:34 | disposition home or self-care (01) ==
LOC: DIORS 15:34
PROVIDERS: PCP Family Medicine; Referring Provider Family Medicine; Visit Provider Student in an Organized Health Care Education/Training Program
DX: Z96.653 Presence of artificial knee joint, bilateral (principal); Z47.1 Aftercare following joint replacement surgery
CPT/HCPCS: 73560

== ENCOUNTER 2022-06-20 08:15 | Day surgery (SDC) | payer OTHER, SELFPAY ==
--- NOTE | 2022-06-19 20:52 | W.PM.DSUDISC ---
Date of service: 06/20/22 Time of Service: 10:50 Discharge Plan Disposition Patient Disposition: Home Condition: Good Discharge Details Reason For Visit: Screening colonoscopy Attending Provider: Andres Clancy Primary Care Provider: Andres Alvarez Home Meds and New Rx's Prescriptions: Continued tadalafil 20 mg tablet 10 - 20 mg PO DAILY PRN (Reason: sexual activity) Qty: 10 2RF Rx Instructions: administer approximately 30min before sexual activity; do not use more than 1 dose per 24hrs Jardiance 25 mg tablet 25 mg PO QAM Qty: 90 3RF metformin 1,000 mg tablet 1,000 mg PO BID Qty: 180 3RF lisinopril-hydrochlorothiazide 20-12.5 mg tablet 2 tab PO DAILY Qty: 180 3RF atorvastatin 20 mg tablet 20 mg PO DAILY Qty: 90 3RF Rybelsus 14 mg tablet 14 mg PO DAILY Qty: 30 2RF (DME) lancets [OneTouch Delica Lancets] 1 EACH misc 1 ea Miscellaneous DAILY Qty: 100 3RF aspirin 81 mg Tablet 81 mg PO DAILY Discontinued polyethylene glycol 3350 17 gram/dose powder 238 g PO ONCE Qty: 238 0RF Rx Instructions: take per colonoscopy instructions bisacodyl [Dulcolax (bisacodyl)] 5 mg tablet,delayed release (DR/EC) 5 mg PO ONCE Qty: 4 0RF Rx Instructions: take per colonoscopy instructions Discharge Instructions Instructions: Colorectal Polyps (GEN) Additional Instructions: Drake, I was able to complete your colonoscopy today. I did find a polyp in the cecum, and I removed this completely. Additionally, I found a large growth in an area known as the hepatic flexure. Although this is large, the clinical features appear more consistent with a lipoma as opposed to a cancer. I did perform some biopsies of this. Ultimately, this mass will need to be removed. However, the technique to remove it will vary depending upon what the mass actually is. I will be in touch when I have the results of the pathology report, which I would estimate between 1 and 2 weeks. If the mass is consistent with a lipoma, then my recommendation would be referral to an advanced endoscopist to see if this is amenable to colonoscopic removal. If the mass is more consistent with a cancer, then you will need to undergo formal surgery to remove this portion of your large intestine. 1. If tolerated, consume a soft, low fiber diet for 1-2 days. 2[address] Do not drive, drink alcohol, operate machinery, make critical decisions, or do activities that require coordination or balance for 24 hours. 3. Because air was put into your colon during the procedure, expelling air from your rectum (passing gas or farting) is normal. 4. You may not have a bowel movement for 1-3 days because of the colonoscopy prep. This is normal. 5. Go directly to the emergency room if you notice any of the following: Develop chills (warm to touch), or if you have a thermometer and your temperature is above 101 Difficulty breathing or difficultly swallowing Persistent vomiting Severe abdominal pain, other than gas cramps Severe chest pain Black, tarry stools Any bleeding ? exceeding one tablespoon 6. Call your physician if the site where your intravenous was started becomes red, swollen, painful, and warm to touch. 7. Your physician has reviewed your pre-procedure medications. Please continue to take those medications as previously ordered. You will be given specific information/education regarding any changes to your medications before leaving. Activity:: Activity as Tolerated Diet:: As Tolerated Discharge Orders Discharge Orders: Discharge Order (Routine); Ordered 06/19/22 Ordered By: Andres Clancy DS: Diagnosis Discharge Diagnosis (1) Screening for colon cancer: Status: Acute Asessment and Plan: Follow-up on pathology results
--- NOTE | 2022-06-19 20:54 | W.COLOREPORT ---
Date of service: 06/20/22 Time of Service: 10:55 Colonoscopy Report Date of procedure: 06/20/22 Pre-op diagnosis general: Screening colonoscopy Post-op diagnosis procedure note: other (Cecal polyp, hepatic flexure mass) Procedure: Colonoscopy Surgeon: Andres Clancy Anesthesia Type: General:No Airway Estimated blood loss (mL): 10 Pathology: other (Cecal polyp, biopsies of hepatic flexure mass) Complications: None Disposition: same day Indications: Drake is a 61-year-old male with a first-degree family relative who has colon cancer. He is here for his next screening colonoscopy. Prep: Miralax/Dulcolax Procedure Start Time: 10:00 Procedure End Time: 10:31 Retraction Time: 19 Findings: Cecal polyp, mass at the hepatic flexure Procedure Description: After the induction of monitored anesthetic care, and with the patient in left lateral decubitus position, I began by performing an external anorectal exam.? Perineum and skin were normal, as was the anal verge.? There was no not evidence of external hemorrhoids.? Next, I performed a digital rectal exam.? I did appreciate any abnormal findings.? Next, I advanced a colonoscope into the rectal vault.? I performed retroflexion.? This was normal.? Using insufflation, I then advanced the colonoscope beyond the rectal folds and into the sigmoid colon before advancing towards the cecum.? The quality of the prep was excellent.? Towards the proximal transverse colon, there was a rounded, mobile mass within the lumen of the colon. The mucosa was smooth and rounded. There was no ulceration. The mass was quite mobile. I was able to navigate around it quite easily. The scope was noted to be in the cecum by identification of the ileocecal valve and appendiceal orifice.? Within the cecum, there was a single sessile 0.25 cm polyp. I removed it with cold forcep polypectomy. There was minimal bleeding. I then began withdrawing the colonoscope using repeated irrigation as necessary for full evaluation of the colonic mucosa. As I came around the hepatic flexure, I encountered the previously described mass. I would estimate this to be greater than 4 cm in its longest dimension. It appeared to be pedunculated, with a narrow neck. I was able to manipulate the scope around the entire mass. Again, the mucosal covering was all very smooth. The lining of the mucosa appeared normal. Grossly, it appeared consistent with a large lipoma. I used cold forceps polyps to take biopsies of the overlying mucosa. I did perform a submucosal tattoo around the neck of the lesion. I used a small energized snare to take a small portion of the lesion. Although I believe a snare could be placed around the entire mass, I was concerned with complete resection of this because of the uncertainty regarding the diagnosis. Therefore, I continued to withdraw the scope and examine the remainder of the colon. Once the scope was withdrawn to the level of the rectum, great care was taken to examine portions of the rectal folds.? I did not see any other abnormalities. Finally, the scope was withdrawn and the patient was brought to the same-day surgery recovery unit as the anesthetic wore off. ?The findings and instructions were shared with the patient prior to discharge. 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 Pathology points to benign disease, then I would refer him to an advanced endoscopist for reconsideration of colonoscopic resection. If it is malignancy, he will need a right hemicolectomy.
[2022-06-20 08:20] VITALS: BP 144/88; PULSE 86; RESP 16; TEMP 36.4; O2SAT 97
[2022-06-20] MEDS: Lactated Ringers 1,000 ML 80 ML IV (08:52)
--- NOTE | 2022-06-20 09:28 | W.ANESPRE ---
General Info Date of Service Date Performed: 06/20/22 Height: 5 ft 8 in Weight: 103.3 kg Body Mass Index (BMI): 34.6 Surgical Procedure: Operation Date: 06/20/22 10:05 Proposed Procedure Side Surgeon helene Clancy MD Meds Allergies and Home Medications Allergies Allergy/AdvReac Type Severity Reaction Status Date / Time codeine AdvReac Mild Nausea Verified 06/03/22 14:54 Home Medication Medication Instructions Recorded lancets 33 gauge (OneTouch Delica #100 ea 11/03/17 Lancets) aspirin 81 mg tablet 81 mg PO DAILY 05/13/20 tadalafil 20 mg tablet 10 - 20 mg PO DAILY PRN sexual 12/11/20 activity #10 tabs empagliflozin 25 mg tablet 25 mg PO QAM #90 tabs 06/11/21 (Jardiance) atorvastatin 20 mg tablet 20 mg PO DAILY #90 tabs 12/14/21 lisinopril 20 2 tab PO DAILY #180 tab-caps 12/14/21 mg-hydrochlorothiazide 12.5 mg tablet metformin 1,000 mg tablet 1,000 mg PO BID #180 tab-caps 12/14/21 semaglutide 14 mg tablet (Rybelsus) 14 mg PO DAILY #30 tabs 03/16/22 Current Visit Medications: Current Medications Generic Name Dose Route Start Last Admin Trade Name Freq PRN Reason Stop Dose Admin Hyoscyamine Sulfate 0.125 mg 06/19/22 20:55 Hyoscyamine 0.125 Mg Sl/Oral/Chew SL DIRECTED PRN Ringer's Solution 1,000 mls @ 80 mls/hr 06/20/22 06:00 06/20/22 08:52 IV 07/17/22 23:59 80 mls/hr INFUSION OSCAR Administration IV Miscellaneous Supplies 1 each 06/20/22 06:00 Iv Access IV 07/17/22 23:59 DIRECTED OSCAR Ondansetron HCl 4 mg 06/19/22 20:55 Ondansetron 4 Mg/2 Ml Vial IVP Q4H PRN PRN Nausea / Vomiting Sodium Chloride 0 ml 06/20/22 06:00 Normal Saline Flush 10 Ml Syr IV 07/17/22 23:59 PRN PRN Sodium Chloride 0 ml 06/20/22 06:00 Normal Saline 10 Ml Vial IJ 07/17/22 23:59 DIRECTED PRN Sterile Water 0 ml 06/20/22 06:00 Water,Injection,Sterile 10 Ml Vial IJ 07/17/22 23:59 DIRECTED PRN PFSH Active Problems Active Problems: Problem Status Onset Code Erectile dysfunction N52.9 Screening for colon cancer Z12.11 PSA elevation R97.20 Ureteral calculus, left 06/09/17 N20.1 Type 2 diabetes mellitus without complication 12/05/14 E11.9 Tubular adenoma 03/26/15 D36.9 Overweight 05/05/15 E66.3 Kidney stone 02/20/15 N20.0 Essential hypertension 12/26/14 I10 Encounter for annual physical exam Z00.00 Diabetes mellitus E11.9 Hypertension I10 MICHELL (obstructive sleep apnea) G47.33 Bilateral chronic knee pain M25.561, M25.562, G89.29 Medical History Medical History Family history of colon cancer in father Pt reports fathers mother in her 50's of colon cancer. Surgical History Surgical History Appendectomy (~1978) History of colonoscopy History of total left knee replacement (05/13/20) History of total right knee replacement (TKR) (04/07/20) left thumb ligament reattached (04/22/98) right knee surgery (04/22/81) Tobacco Smoking/Tobacco Use Status: Former Tobacco Use Smokeless tobacco user: chewing tobacco Passive smoking exposure: Yes Second hand exposure: Yes Alcohol Alcohol Intake: current Alcohol intake frequency: a few times a month Alcohol type: beer Substance Use Substance use: Never Substance use type: does not use Details: Pt states smoking briefly in 's, has chewed tobacco for many years, quit 2021 Vital Signs and Lab Results Vital Signs Most Recent Vital Signs in EMR: Most Recent Vital Signs Temp Pulse Resp BP Pulse Ox 36.4 C L 86 16 144/88 H 97 06/20/22 08:20 06/20/22 08:20 06/20/22 08:20 06/20/22 08:20 06/20/22 08:20 Point of Care Results Point of Care Results: Finger Stick Blood Glucose 112 06/20/22 08:25 Lab Results Blood Type / Crossmatch: No Data to Display Complete Blood Count: No Data to Display Complete Metabolic Panel: No Data to Display Liver Function Panel: No Data to Display Coagulation Panel: No Data to Display Cardiac Panel: No Data to Display Arterial Blood Gas: No Data to Display Venous Blood Gas: No Data to Display Pancreas Panel: No Data to Display Thyroid Panel: No Data to Display Infectious Disease: No Data to Display Blood Cultures: No Data to Display Toxicology Panel: No Data to Display Anesthesia Assessment and Plan Anesthesia History Personal History: No History of Anesthesia Complications Family History: No Family History of Anesthesia Complications Exercise Tolerance Exercise Tolerance: Metabolic Equivalents>4 Pertinent Negatives Pertinent Negatives: No Symptoms of GERD Cardiac & Pulmonary Exam Cardiac Exam: Normal S1/S2 Heart Sounds Pulmonary Exam: Clear Bilateral Breath Sounds Implantable Cardiac Device Does patient have a Pacemaker or an ICD?: No Airway Exam Known Difficult Airway: No Previous Airway Comments:: Gave history of having an airway placed during colo in another hospital. No records documentmenting that. Has MICHELL so possible LMA placed. Pt reported slightly sore throat. Will be prepared in proc room. Mallampati Class: 3 Mouth Opening: Normal (> 3cm) Thyromental Distance: Greater than 3 cm Neck Range of Motion: Full ROM Neck Circumference: Thick Teeth Condition: Normal Dentition ASA Classification ASA Score: ASA 3 Emergency Case?: No NPO Status NPO Status: NPO Clears >2 hours, Solids >8 hours Anesthesia Plan Resuscitation Status: Full Code Anesthesia Technique: General Anesthesia Airway Planned: Natural Airway Monitors Used: Standard Monitors
[2022-06-20 09:46] VITALS: BMI 34.6
--- NOTE | 2022-06-20 10:17 | BOWEL_PTH ---
PATIENT: Nestor Manzano LOC: [facility] U#:[id number] AGE/SX: 61/M ROOM: RE06/20/[address]: Andres Clancy MD : [id number] BED: DIS: 06/20/2022 SPEC #: [id number] RECD: 06/20/22 12:32 STATUS: NOELLEBrandon REQ #: [id number] JUAN: 06/20/22 10:[address]: Andres Clancy DEPT: Surgical Specimen RECD BY: Yuli Reis ENTERED: 06/20/22 12:33 SP TYPE: Bowel OTHR DR: Andres Alvarez MD Tissues: 1 - BIOPSY BOWEL 2 - BIOPSY BOWEL Procedures: GROSS AND MICRO LEVEL 4 Comments: [id number]
[2022-06-20] MEDS: Endoscopic Tattoo 5 ML SYR IJ (10:20)
[2022-06-20 10:41] VITALS: BP 90/63; PULSE 75; RESP 16; TEMP 36.8; O2SAT 93
--- NOTE | 2022-06-20 10:54 | W.ANESPOSTOP ---
Postoperative Evaluation Date, Time and Location Date Performed: 06/20/22 Time Performed: 10:54 Patient Location: Day Surgery Unit Vital Signs Most Recent Imported Vital Signs: Most Recent Vital Signs Temp Pulse Resp BP Pulse Ox 36.8 C 75 16 90/63 L 93 06/20/22 10:41 06/20/22 10:41 06/20/22 10:41 06/20/22 10:41 06/20/22 10:41 Pain Score Most Recent Pain Score: Most Recent Pain Score Pain Level 0 06/20/22 10:41 Assessment Mental Status: Awake (Alert & Oriented to Patient Baseline) Airway and Respiratory Function: Patent airway with normal (patient baseline) respiratory exam Cardiovascular Function: Hemodynamically Stable Hydration Status: Adequately Hydrated Nausea & Vomiting: No Nausea or Vomiting Pain: Pt. Denies Any Pain Peripheral Nerve Block: Patient did not receive a nerve block
[2022-06-20 11:04] VITALS: BP 101/61; PULSE 69; RESP 16; TEMP 36.8; O2SAT 94
== END 2022-06-20 11:39 | disposition home or self-care (01) ==
PROVIDERS: PCP Family Medicine; Visit Provider Surgery
PROC: 0DJD8ZZ Inspection of Lower Intestinal Tract, Via Natural or Artificial Opening Endoscopic (ICD-10-PCS; CPT 45378; principal; 2022-06-20 10:00)
DX: Z12.11 Encounter for screening for malignant neoplasm of colon (principal); Z80.0 Family history of malignant neoplasm of digestive organs; K63.5 Polyp of colon; K63.89 Other specified diseases of intestine; E11.9 Type 2 diabetes mellitus without complications
CPT/HCPCS: 45380; 45381; 88305; J2704

== ENCOUNTER 2022-08-09 03:13 | Outpatient (CLI) | payer OTHER, SELFPAY ==
[2022-08-09 18:42] LABS: PSA, Diagnostic 4.8 ng/mL (<=4.5)
== END 2022-08-09 03:14 | disposition home or self-care (01) ==
LOC: LBO 03:13
PROVIDERS: PCP Family Medicine; Visit Provider Nurse Practitioner Gerontology
DX: R97.20 Elevated prostate specific antigen [PSA] (principal)
CPT/HCPCS: 36415; 84153

== ENCOUNTER 2023-02-07 02:00 | Outpatient (CLI) | payer OTHER, SELFPAY ==
[2023-02-07 07:45] LABS: CREATININE 1.3 mg/dL (0.70-1.30); Calculated LDL 119 mg/dL (<100); Cholesterol 222 mg/dL (<200); Estimated GFR 61.35 (mL/min/1.73m2); HDL Cholesterol 53 mg/dL (40-60); Triglyceride 254 mg/dL (<150)
[2023-02-07 18:23] LABS: PSA, Diagnostic 4.8 ng/mL (<=4.5)
== END 2023-02-07 02:01 | disposition home or self-care (01) ==
LOC: LBO 02:01
PROVIDERS: PCP Family Medicine; Visit Provider Nurse Practitioner Gerontology
DX: I10 Essential (primary) hypertension (principal); E78.5 Hyperlipidemia, unspecified; R97.20 Elevated prostate specific antigen [PSA]; N52.8 Other male erectile dysfunction
CPT/HCPCS: 36415; 80061; 82565; 84132; 84153

== ENCOUNTER 2023-05-02 21:55 | Outpatient (REF) | payer OTHER, SELFPAY ==
[2023-05-02 12:32] LABS: COMMENT (LAB VIEW ONLY) 43.47 mg/dL
== END 2023-05-02 21:56 | disposition home or self-care (01) ==
LOC: LBN 21:55
PROVIDERS: PCP Family Medicine; Referring Provider Family Medicine; Visit Provider Family Medicine
DX: E11.9 Type 2 diabetes mellitus without complications (principal)
CPT/HCPCS: 82043; 82570

== ENCOUNTER 2023-08-08 04:58 | Outpatient (CLI) | payer MEDICARE, OTHER, SELFPAY ==
[2023-08-08 19:09] LABS: PSA, Screening 4.9 ng/mL (<=4.5)
== END 2023-08-08 04:59 | disposition home or self-care (01) ==
LOC: LBO 04:58
PROVIDERS: PCP Family Medicine; Visit Provider Nurse Practitioner Gerontology
DX: R39.9 Unspecified symptoms and signs involving the genitourinary system (principal); R97.20 Elevated prostate specific antigen [PSA]; Z12.5 Encounter for screening for malignant neoplasm of prostate
CPT/HCPCS: 36415; 84153

== ENCOUNTER → 2023-11-01 15:22 | Outpatient (BNVA) | payer MEDICARE, OTHER, SELFPAY | PROVIDERS: PCP Family Medicine; Visit Provider Nurse Practitioner Gerontology | DX: R35.1 Nocturia (principal); N52.9 Male erectile dysfunction, unspecified; N20.0 Calculus of kidney; R97.20 Elevated prostate specific antigen [PSA] | CPT/HCPCS: 99213 ==

== ENCOUNTER 2024-05-07 09:03 | Outpatient (CLI) | payer MEDICARE, OTHER, SELFPAY ==
[2024-05-07 12:42] LABS: CREATININE 1.4 mg/dL (0.70-1.30); Calculated LDL 101 mg/dL (<100); Cholesterol 197 mg/dL (<200); Estimated GFR 55.78 (mL/min/1.73m2); HDL Cholesterol 56 mg/dL (>or=40); Potassium 4.3 mmol/L (3.5-5.1); Triglyceride 202 mg/dL (<150)
[2024-05-07 20:18] LABS: PSA, Diagnostic 5.7 ng/mL (<=4.5)
== END 2024-05-07 09:04 | disposition home or self-care (01) ==
PROVIDERS: Nurse Practitioner Gerontology; PCP Family Medicine; Referring Provider Family Medicine; Visit Provider Family Medicine
DX: E78.5 Hyperlipidemia, unspecified (principal); I10 Essential (primary) hypertension; R97.20 Elevated prostate specific antigen [PSA]
CPT/HCPCS: 36415; 80061; 82565; 84132; 84153

== ENCOUNTER → 2024-05-15 15:22 | Outpatient (BNVA) | payer MEDICARE, OTHER, SELFPAY | PROVIDERS: PCP Family Medicine; Referring Provider Family Medicine; Visit Provider Nurse Practitioner Gerontology | DX: N52.9 Male erectile dysfunction, unspecified (principal); N20.0 Calculus of kidney; R35.1 Nocturia; R97.20 Elevated prostate specific antigen [PSA] | CPT/HCPCS: 99214 ==

== ENCOUNTER 2024-08-07 02:42 | Outpatient (CLI) | payer MEDICARE, OTHER, SELFPAY ==
[2024-08-12 10:46] LABS: Free PSA/PSA Ratio 0.12 ratio
== END 2024-08-07 02:43 | disposition home or self-care (01) ==
LOC: LBO 02:42
PROVIDERS: PCP Family Medicine; Visit Provider Nurse Practitioner Gerontology
DX: R97.20 Elevated prostate specific antigen [PSA] (principal)
CPT/HCPCS: 36415; 84154

== ENCOUNTER → 2024-08-14 15:24 | Outpatient (BNVA) | payer MEDICARE, OTHER, SELFPAY | PROVIDERS: PCP Family Medicine; Referring Provider Family Medicine; Visit Provider Nurse Practitioner Gerontology | DX: N52.9 Male erectile dysfunction, unspecified (principal); N20.0 Calculus of kidney; R97.20 Elevated prostate specific antigen [PSA] | CPT/HCPCS: 99213 ==

== ENCOUNTER → 2024-09-23 08:00 | Outpatient (BNVA) | payer MEDICARE, OTHER, SELFPAY | PROVIDERS: PCP Family Medicine; Referring Provider Family Medicine; Visit Provider Nurse Practitioner Gerontology | DX: N52.9 Male erectile dysfunction, unspecified (principal); N40.1 Benign prostatic hyperplasia with lower urinary tract symptoms; R97.20 Elevated prostate specific antigen [PSA]; Z87.442 Personal history of urinary calculi | CPT/HCPCS: 99213 ==